=== PATIENT | male | born 1955 | race Caucasian/White ===

== ENCOUNTER 2018-03-31 15:00 | Outpatient (CLI) | payer MEDICAID, SELFPAY ==
[2018-03-31 15:16] LABS: Abs Immature Grans 0.02 k/cumm (0.0-0.09); Absolute Basophil Count 0.03 k/cumm (0.0-0.2); Absolute Eosinophil Count 0.16 k/cumm (0.0-0.7); Absolute Lymphocyte Count 0.88 k/cumm (1.2-3.4); Absolute Monocyte Count 0.43 k/cumm (0.11-0.7); Absolute Neutrophil Count 2.49 k/cumm (1.2-6.7); Basophils % 0.7; HCT 39.6 % (40.0-50.0); HGB 13.1 g/dL (13.5-17.5); Immature Grans % 0.5; Lymphocytes % 21.9; Mean Corp. HGB Concentration 33.1 g/dL (32.0-36.0); Mean Corpuscular Volume 96.8 fL (80-95); Mean Platelet Volume 10.8 fL (8.0-11.0); Monocytes % 10.7; Neutrophils % 62.2; RBC 4.09 m/cumm (4.50-6.00); RBC Distribution Width 12.4 % (11.8-14.1); White Blood Cell Count 4.01 k/cumm (4.4-10.8)
[2018-03-31 15:28] LABS: ALT 49 U/L (12-78); AST 52 U/L (15-37); Albumin 3.6 g/dL (3.4-5.0); Alkaline Phosphatase 141 U/L (46-116); Anion Gap 2.9 mmol/L (3-11); BUN 17 mg/dL (7-18); Bilirubin, Total 0.6 mg/dL (0.2-1.0); CO2 31.1 mmol/L (21.0-32.0); CREATININE 0.64 mg/dL (0.70-1.30); Calcium 9.2 mg/dL (8.5-10.1); Chloride 102 mmol/L (98-107); Glucose 96 mg/dL (70-100); Potassium 3.9 mmol/L (3.5-5.1); Sodium 136 mmol/L (136-145)
[2018-03-31 15:32] LABS: Platelet Count 66 x1000/uL (130-400)
== END 2018-03-31 15:01 ==
PROVIDERS: PCP Nurse Practitioner Adult Health; Visit Provider Nurse Practitioner Adult Health
DX: C06.9 Malignant neoplasm of mouth, unspecified (principal); K70.31 Alcoholic cirrhosis of liver with ascites
CPT/HCPCS: 36415; 80053; 85025

== ENCOUNTER 2018-05-26 14:12 | Outpatient (CLI) | payer MEDICAID, SELFPAY ==
[2018-05-26 14:41] LABS: Abs Immature Grans 0.01 k/cumm (0.0-0.09); Absolute Basophil Count 0.02 k/cumm (0.0-0.2); Absolute Eosinophil Count 0.16 k/cumm (0.0-0.7); Absolute Lymphocyte Count 1.05 k/cumm (1.2-3.4); Absolute Monocyte Count 0.42 k/cumm (0.11-0.7); Basophils % 0.4; Eosinophils % 2.9; HCT 41.2 % (40.0-50.0); HGB 13.6 g/dL (13.5-17.5); Immature Grans % 0.2; Lymphocytes % 19.2; Mean Corpuscular Hemoglobin 31.9 pg (27.0-33.0); Mean Corpuscular Volume 96.7 fL (80-95); Mean Platelet Volume 12.1 fL (8.0-11.0); Monocytes % 7.7; Neutrophils % 69.6; RBC 4.26 m/cumm (4.50-6.00); RBC Distribution Width 12.9 % (11.8-14.1); White Blood Cell Count 5.46 k/cumm (4.4-10.8)
[2018-05-26 14:50] LABS: Platelet Count 67 x1000/uL (130-400)
[2018-05-26 14:57] LABS: ALT 44 U/L (12-78); AST 42 U/L (15-37); Albumin 3.5 g/dL (3.4-5.0); Alkaline Phosphatase 175 U/L (46-116); Anion Gap 13.7 mmol/L (3-11); BUN 20 mg/dL (7-18); Bilirubin, Total 0.6 mg/dL (0.2-1.0); CO2 26.3 mmol/L (21.0-32.0); CREATININE 0.83 mg/dL (0.70-1.30); Calcium 9.8 mg/dL (8.5-10.1); Chloride 101 mmol/L (98-107); Glucose 74 mg/dL (70-100); Potassium 4.4 mmol/L (3.5-5.1); Sodium 141 mmol/L (136-145); TSH 3.83 uIU/mL (0.358-3.74); Total Protein 8.8 g/dL (6.4-8.2)
== END 2018-05-26 14:32 ==
PROVIDERS: PCP Nurse Practitioner Adult Health; Visit Provider Nurse Practitioner Adult Health
DX: C06.9 Malignant neoplasm of mouth, unspecified (principal); K70.31 Alcoholic cirrhosis of liver with ascites
CPT/HCPCS: 36415; 80053; 84443; 85025

== ENCOUNTER 2018-07-07 08:46 | Outpatient (CLI) | payer MEDICAID, SELFPAY ==
[2018-07-07 09:11] LABS: Abs Immature Grans 0.03 k/cumm (0.0-0.09); Absolute Basophil Count 0.03 k/cumm (0.0-0.2); Absolute Eosinophil Count 0.27 k/cumm (0.0-0.7); Absolute Lymphocyte Count 0.91 k/cumm (1.2-3.4); Absolute Monocyte Count 0.57 k/cumm (0.11-0.7); Absolute Neutrophil Count 3.65 k/cumm (1.2-6.7); Basophils % 0.5; Eosinophils % 4.9; HCT 39.3 % (40.0-50.0); HGB 13.1 g/dL (13.5-17.5); Immature Grans % 0.5; Lymphocytes % 16.7; Mean Corp. HGB Concentration 33.3 g/dL (32.0-36.0); Mean Corpuscular Hemoglobin 31.7 pg (27.0-33.0); Mean Corpuscular Volume 95.2 fL (80-95); Mean Platelet Volume 10.8 fL (8.0-11.0); Monocytes % 10.4; RBC 4.13 m/cumm (4.50-6.00); White Blood Cell Count 5.46 k/cumm (4.4-10.8)
[2018-07-07 09:21] LABS: ALT 40 U/L (12-78); AST 36 U/L (15-37); Albumin 3.3 g/dL (3.4-5.0); Alkaline Phosphatase 158 U/L (46-116); Anion Gap 7.8 mmol/L (3-11); BUN 22 mg/dL (7-18); Bilirubin, Total 0.6 mg/dL (0.2-1.0); CO2 29.2 mmol/L (21.0-32.0); CREATININE 0.76 mg/dL (0.70-1.30); Calcium 9.3 mg/dL (8.5-10.1); Chloride 100 mmol/L (98-107); Glucose 85 mg/dL (70-100); Magnesium 1.7 mg/dL (1.8-2.4); Potassium 4.6 mmol/L (3.5-5.1); Sodium 137 mmol/L (136-145); Total Protein 8.5 g/dL (6.4-8.2)
[2018-07-07 09:31] LABS: Platelet Count 94 x1000/uL (130-400)
[2018-07-07 09:32] LABS: Diff Comment PLT Morph Reviewed; RBC Morphology Normal
== END 2018-07-07 09:06 ==
PROVIDERS: PCP Nurse Practitioner Adult Health; Visit Provider Nurse Practitioner Adult Health
DX: D69.6 Thrombocytopenia, unspecified (principal); I95.9 Hypotension, unspecified; C06.9 Malignant neoplasm of mouth, unspecified; Z95.828 Presence of other vascular implants and grafts; Z93.1 Gastrostomy status
CPT/HCPCS: 36415; 80053; 83735; 85025